=== PATIENT | female | born 2000 | race African-American/Black ===

== ENCOUNTER 2022-01-14 12:22 | Emergency (ER) | payer SELFPAY ==
[2022-01-14] MEDS ORDERED: Acetaminophen 325 MG TAB ONE (13:06)
[2022-01-14] MEDS ORDERED: Ibuprofen 200 MG TAB ONE (13:06)
== END 2022-01-14 13:11 | disposition home or self-care (01) ==
LOC: CSHERS 12:22
DX: M25.512 Pain in left shoulder (principal); F17.290 Nicotine dependence, other tobacco product, uncomplicated
CPT/HCPCS: 99283

== ENCOUNTER 2022-04-01 19:53 | Emergency (ER) | payer BC, SELFPAY ==
[2022-04-01] MEDS ORDERED: Dicyclomine 20 MG TAB ONE (20:33)
[2022-04-01 20:51] LABS: Bilirubin Neg (Negative); Blood, Urine Negative (Negative); Clarity Sl. Cloudy (Clear); Glucose, Urine (Dipstick) Normal (Negative); Ketone, Urine 5 mg/dL (Negative); Leukocyte 25 (Negative); Nitrite Negative (Negative); Protein, Urine (Dipstick) 30 mg/dl (Neg-Trace)
[2022-04-01 20:55] LABS: Pregnancy Test - Urine (BHCG) Negative (Negative); Pregu Control Background? CLEAR/WHITE (CLR/WHITE); Pregu Control Bar Appear? YES (CONTROL BAR)
[2022-04-01 21:06] LABS: Bacteria/HPF 1+ HPF (None Seen); Mucous/LPF 1+ LPF (<2+); RBC/HPF 0-3 HPF (0-3); Squamous Epithelial 21-50 HPF (0-3)
== END 2022-04-01 21:50 | disposition home or self-care (01) ==
LOC: CSHERS 19:53
DX: R11.2 Nausea with vomiting, unspecified (principal); R19.7 Diarrhea, unspecified; R10.9 Unspecified abdominal pain; F17.290 Nicotine dependence, other tobacco product, uncomplicated
CPT/HCPCS: 81003; 81015; 81025; 87804; 99284